=== PATIENT | male | born 1985 | race Two or more races ===

== ENCOUNTER 2018-04-16 22:18 | Emergency (ER) | payer BC, MEDICAID, OTHER ==
[~2018-04-16] VITALS: Ht 172.7 cm; Wt 79.5 kg
[2018-04-16 22:20] VITALS: BP 141/90
== END 2018-04-16 23:29 | disposition home or self-care (01) ==
LOC: ED 22:43
DX: F41.1 Generalized anxiety disorder (principal); E71.19 Other disorders of branched-chain amino-acid metabolism; F14.10 Cocaine abuse, uncomplicated; R06.4 Hyperventilation; F17.200 Nicotine dependence, unspecified, uncomplicated
CPT/HCPCS: 93005; 99284